=== PATIENT | female | born 1985 | race African-American/Black ===

== ENCOUNTER 2020-04-18 14:31 | Emergency (ER) | payer BC ==
[2020-04-18 14:39] VITALS: BMI 34.3
--- NOTE | 2020-04-18 14:39 | PDOC ---
Rapid Medical Evaluation Chief Complaint: Pain Time Seen by Provider: 04/18/20 14:35 Medical Evaluation: 04/18/20 14:35 Pt presents for vaginal bleeding at 6 weeks . Notes she is having bright red blood and cramping at this time. Last reported period 02/17/2020. Exam: deferred at this time Orders: labs, TUVS Pt to proceed to the ER for further evaluation Discharge Disposition - Diagnosis Vaginal bleeding during - Referrals - Patient Instructions - Post Discharge Activity
[2020-04-18] MEDS ORDERED: SODIUM CHLORIDE 0.9% 500 ML INFUS.BAG IV ONE (15:05)
[2020-04-18] MEDS ORDERED: ACETAMINOPHEN 500 MG TABLET (FP) PO ONE (15:06)
--- NOTE | 2020-04-18 15:08 | PDOC ---
History of Present Illness - General Chief Complaint: Pain Stated Complaint: 6 WEEKS / ABDOMINAL PAIN Time Seen by Provider: 04/18/20 14:35 History Source: Patient Exam Limitations: No Limitations - History of Present Illness Initial Comments: 04/18/20 15:07 Patient is a 35-year-old female G1, P0 6 weeks by ultrasound on 04/15 here with complaint of vaginal bleeding and lower abdominal pain. States she had sex 5 days ago and developed some dark spotting. She went to [facility] the following day, ultrasound and labs done noted to have a beta hCG of 8421 and h/h of . States that she was feeling well until today she had a little bit of dizzinesslightheaded and then had the urge to have a bowel movement. States when she went to the bathroom she saw bright red bleeding and so has come to the emergency room for evaluation. PMD: [facility] PMHX: as above PSOCHX: ALL: NKDA GENERAL/CONSTITUTIONAL: [No fever or chills. No weakness. No weight change.] HEAD, EYES, EARS, NOSE AND THROAT: [No change in vision. No ear pain or discharge. No sore throat.] CARDIOVASCULAR: [No chest pain or shortness of breath.] RESPIRATORY: [No cough, wheezing, or hemoptysis.] GASTROINTESTINAL: [No nausea, vomiting, diarrhea or constipation. No rectal bleeding.] GENITOURINARY: [No dysuria, frequency, or change in urination.] MUSCULOSKELETAL: [No joint or muscle swelling or pain. No neck or back pain.] SKIN AND BREASTS: [No rash or easy bruising.] NEUROLOGIC: [No headache, vertigo, loss of consciousness, or loss of sensation.] PSYCHIATRIC: [No depression or anxiety.] ENDOCRINE: [No increased thirst. No abnormal weight change.] HEMATOLOGIC/LYMPHATIC: [No anemia, easy bleeding, or history of blood clots.] ALLERGIC/IMMUNOLOGIC: [No hives or skin allergy. No latex allergy.] GENERAL: [The patient is awake, alert, and fully oriented, in no acute distress.] HEAD: [Normal with no signs of trauma.] EYES: [Pupils equal, round and reactive to light, extraocular movements intact, sclera anicteric, conjunctiva clear.] ENT: [Ears normal, nares patent, oropharynx clear without exudates. Moist mucous membranes.] NECK: [Normal range of motion, supple without lymphadenopathy, JVD, or masses.] LUNGS: [Breath sounds equal, clear to auscultation bilaterally. No wheezes, and no crackles.] HEART: [Regular rate and rhythm, normal S1 and S2 without murmur, rub.] ABDOMEN: [Soft, (+) tenderness lower abd, normoactive bowel sounds. No guarding, no rebound. No masses.] PELVIC: Piercing in the clitoris, POC protruding from the office, minimal bleeding EXTREMITIES: [Normal range of motion, no edema. No clubbing or cyanosis. No cords, erythema, or tenderness.] NEUROLOGICAL: [Cranial nerves II through XII grossly intact. Normal speech, normal gait.] PSYCH: [Normal mood, normal affect.] SKIN: [Warm, Dry, normal turgor, no rashes or lesions noted.] Past History - Medical History Allergies/Adverse Reactions: Allergies Allergy/AdvReac Type Severity Reaction Status Date / Time No Known Allergies Allergy Verified 04/18/20 14:39 Home Medications: Ambulatory Orders No122/Iron/Folic Acid [ Multi Tablet] 1 tab PO DAILY 04/18/20 COPD: No - Psycho-Social/Smoking History Smoking History: Never smoked - Substance Abuse Hx (Audit-C & DAST Scrn) How often the patient has a drink containing alcohol: Never Score: In Men: 4 or > Positive; In Women: 3 or > Positive: 0 Screen Result (Pos requires Nsg. Audit-10AR): Negative *Physical Exam - Vital Signs Last Vital Signs Temp Pulse Resp BP Pulse Ox 98.4 F 60 18 92/62 100 04/18/20 14:35 04/18/20 14:35 04/18/20 14:35 04/18/20 14:35 04/18/20 14:35 ED Treatment Course - LABORATORY CBC & Chemistry Diagram: 04/18/20 15:15 04/18/20 15:21 Medical Decision Making - Medical Decision Making 04/18/20 15:07 Patient is a 35-year-old female G1, P0 6 weeks by ultrasound on 04/15 here with complaint of vaginal bleeding and lower abdominal pain. States she had sex 5 days ago and developed some dark spotting. She went to [facility] the following day, ultrasound and labs done noted to have a beta hCG of 8421 and h/h of 15/44. States that she was feeling well until today she had a little bit of dizzinesslightheaded and then had the urge to have a bowel movement. States when she went to the bathroom she saw bright red bleeding and so has come to the emergency room for evaluation. Symptoms consistent with threatened . Will repeat labs and ultrasound today Reassess Labs reviewed noted that hCG is 4400 which is dropped from 5 days ago. H&H stable. Type and screen O+ POC removed from office. This is a complete . Patient Full Name: MATHEW COYLE Patient Accession No: [id number] Patient : 1985 Reason for Exam: r/o ectopic 6 weeks preg with vag bleeding Referring Physician: CHARLA CHOU Patient Name: JONNA CARMONA THIS IS A PRELIMINARY REPORT FROM [facility] DATE OF SERVICE: 2020-04-18 16:29:06 IMAGES: 47 EXAM: US PELVIC COMPLETE TRANSVAGINAL WITH US DUPLEX PELVIS . REASON FOR EXAM: 6 weeks with vaginal bleeding rule out ectopic COMPARISON: None FINDINGS: The anteverted uterus is normal in echotexture and without discrete fibroids or mass. The uterus measures 9.14 x 4.27 x 4.81 cm. The heterogeneous endometrium is 9 mm in thickness. There is no intrauterine or extrauterine identified at this time. There is no free fluid or melo picious adnexal mass. The ovaries are sonographically unremarkable with simple appearing cyst in the right ovary measuring 2.4 x 1.8 x 2.1 cm.. The right ovary measure 4.1 x 2.7 x 3.2 cm and the left ovary measures 2.5 x 1.3 x 2.3 cm Bilateral ovarian arterial and venous vascular doppler flow with normal spectral waveforms. IMPRESSION: No intrauterine or extrauterine . No free fluid or suspicious pelvic mass.. Continue close follow-up with serial sonogram and beta hCG levels No evidence of ovarian torsion. THIS DOCUMENT HAS BEEN ELECTRONICALLY SIGNED Rhianna Mitchell D.O. 04/18/2020 18:11 EST [facility]. Please call [facility] [phone] with questions. INTERPRETING RADIOLOGIST: Rhianna Mitchell MD Electronically Signed: Apr 18, 2020 06:12PM EDT I discussed the physical exam findings, ancillary test results and final diagnoses with the patient. I answered all of the patient's questions. The patient was satisfied with the care received and felt comfortable with the discharge plan and treatment plan. The Patient agrees to follow up with the primary care physician within 24-72 hours. Discharge - Discharge Information Problems reviewed: Yes Clinical Impression/Diagnosis: Vaginal bleeding during , Complete Condition: Stable Disposition: HOME - Follow up/Referral - Patient Discharge Instructions Patient Printed Discharge Instructions: DI for Miscarriage Additional Instructions: Your Discharge Instructions: You must call primary care physician within 24 hours to arrange follow-up. Return to the Emergency Department with any new, persistent or worsening symptoms, for fever, chills, SOB, dizziness or any other concerning changes that may occur. You must follow-up with your [facility]INE[facility] in 1 to 2 days call for an appointment. - Post Discharge Activity
[2020-04-18] MEDS ORDERED: ACETAMINOPHEN 325 MG TABLET (FP) ONE (15:25)
[2020-04-18 15:31] LABS: BASO % 0.3 % (0-2.0); EOS % 0.1 % (0-4.5); HEMATOCRIT 41.3 % (32.4-45.2); HEMOGLOBIN 13.8 GM/dL (10.7-15.3); LYMPH % 16.2 % (8-40); MCH 31.4 pg (25.7-33.7); MCHC 33.3 g/dl (32.0-36.0); MEAN CELL VOLUME 94.3 fl (80-96); MEAN PLT VOLUME 10.4 fl (7.5-11.1); MONO % 4.6 % (3.8-10.2); NEUT % 78.8 % (42.8-82.8); PLATELET COUNT 205 K/MM3 (134-434); RBC 4.38 M/mm3 (3.60-5.2); RDW 12.7 % (11.6-15.6); WHITE BLOOD COUNT 12.7 K/mm3 (4.0-10.0)
[2020-04-18 16:07] LABS: BLOOD UREA NITROGEN 12.9 mg/dL (7-18); CALCIUM 9.6 mg/dL (8.5-10.1); CREATININE 0.9 mg/dL (0.55-1.3); POTASSIUM 3.9 mmol/L (3.5-5.1)
[2020-04-18 17:08] LABS: EPI CELLS 25 /uL (0-25.1); HYALINE CASTS 7 /uL (0-3.1); PH,URINE 5.5 (5.0-8.0); URINE APPEARANCE TURBID; URINE BACTERIA 155 /uL (0-1359); URINE BILIRUBIN 1+ (NEGATIVE); URINE COLOR DK YELLOW; URINE GLUCOSE (UA) NEGATIVE (NEGATIVE); URINE KETONE 1+ (NEGATIVE); URINE LEUK ESTERASE NEGATIVE (NEGATIVE); URINE NITRITE NEGATIVE (NEGATIVE); URINE PROTEIN 1+ (NEGATIVE); URINE RBC 29 /uL (0-23.9); URINE WBC 12 /uL (0-25.8)
[2020-04-18 17:29] LABS: URINE CRYSTALS NONE SEEN /hpf
[2020-04-18 18:36] VITALS: TEMP 97.6
[2020-04-18 18:57] VITALS: BP 103/57; PULSE 87
--- NOTE | 2020-04-21 16:04 | PATH ---
Surgical Pathology Report Patient Name: JONNA CARMONA [facility]. Rec. #: [id number] /Age/Gender: 1985 (Age: 35) / F Account: [id number] Location: EMERGENCY ROOM Taken: 04/18/2020 Received: 04/19/2020 Reported: 04/21/2020 Physicians: JOSE Ledesma Specimen(s) Received PRODUCTS OF CONCEPTION Clinical History Rule out product of conception Final Diagnosis PRODUCTS OF CONCEPTION: CHORIONIC VILLI PRESENT, CONSISTENT WITH PRODUCTS OF CONCEPTION. Electronically Signed Kerri Scott M.D. Gross Description Received fresh labeled with patient's information and products of conception, is a saclike structure measuring 4.5 x 3.0 x 0.5 cm. The inner surface of the sac is smooth and focal hemorrhagic. No fetus is identified. The specimen is serial sectioned. Dough Panner sections submitted one cassette for histology. Additional sections (specimen entirely submitted) in cassettes 2 to 6. JAIME/04/19/2020 jose maria/04/19/2020
== END 2020-04-18 18:54 | disposition home or self-care (01) ==
LOC: JER 14:31
DX: N93.9 Abnormal uterine and vaginal bleeding, unspecified (principal); O03.9 Complete or unspecified spontaneous abortion without complication
CPT/HCPCS: 36415; 76817-TC; 80048; 81003; 84702; 85025; 86850; 86900; 86901; 87086; 88305-TC; 99283-25